=== PATIENT | male | born 1950 | race Two or more races ===

== ENCOUNTER 2024-05-03 11:07 | Emergency (ER) | payer MEDICARE ==
[~2024-05-03] VITALS: Ht 182.9 cm; Wt 79.8 kg
[2024-05-03] MEDS ORDERED: HYDR25TA5 PO (11:54)
[2024-05-03 12:30] LABS: Chloride 105 mmol/L (98-107); Potassium 4.3 mmol/L (3.5-5.1); Sodium 138 mmol/L (136-145)
[2024-05-03 12:31] LABS: Anion Gap 9 (5-15); Calcium 9.7 mg/dL (8.7-10.4); Carbon Dioxide 24 mmol/L (20-31)
[2024-05-03 12:36] LABS: Blood Urea Nitrogen 9 mg/dL (9-23); Glucose 100 mg/dL (74-106)
[2024-05-03] MEDS: cloNIDine HCL 0.1 MG TAB PO ONE (13:10)
[2024-05-03 14:00] VITALS: PULSE 108; RESP 13; O2SAT 97
[2024-05-03 14:16] VITALS: BP 178/106; PULSE 108; RESP 13; TEMP 98.7; O2SAT 97
== END 2024-05-03 14:15 | disposition home or self-care (01) ==
LOC: ER 11:07
DX: I16.0 Hypertensive urgency (principal); M79.89 Other specified soft tissue disorders; Z79.899 Other long term (current) drug therapy
CPT/HCPCS: 36415; 80048